=== PATIENT | female | born 1975 ===

== ENCOUNTER 2016-12-30 13:05 | Emergency (ER) | payer MEDICAID, OTHER ==
[2016-12-30 13:06] VITALS: BMI 23.3
[2016-12-30 13:33] VITALS: BP 94/64; PULSE 70; RESP 18; TEMP 98.3; O2SAT 99
--- NOTE | 2016-12-30 14:01 | RAD ---
PROCEDURE: Right Ankle Radiographs. HISTORY: pain COMPARISON: Right ankle radiographs performed 05/04/15 FINDINGS: BONES: No acute displaced fracture. Small heel spur. JOINTS: No dislocation. SOFT TISSUES: Unremarkable. No evidence of radiopaque foreign body. OTHER FINDINGS: None. IMPRESSION: No acute displaced fracture, dislocation, or significant joint effusion identified. If symptoms persist or if there is clinical concern, x-ray follow-up in 7-10 days should be considered.
--- NOTE | 2016-12-30 14:20 | C.PDOC ---
History Of Present Illness 41 year old patient presents to the ED complaining of right foot heel since yesterday. Patient states she has a burning and pulling sensation. Patient notes she took Motrin prior to arrival. Patient denies any new trauma, fever, numbness, weakness, or any more pain medications. Patient has a history of plantar fasciitis, surgical removal of benign tumors, and fractures to the left foot. Time Seen by Provider: 12/30/16 13:38 Chief Complaint (Nursing): Lower Extremity Problem/Injury History Per: Patient History/Exam Limitations: no limitations Onset/Duration Of Symptoms: Days (1) Current Symptoms Are (Timing): Still Present Severity: Mild Pain Scale Rating Of: 3 Recent travel outside of the [place]: No Past Medical History Reviewed: Historical Data, Nursing Documentation, Vital Signs Vital Signs: Last Vital Signs Temp 98.3 F 12/30/16 13:33 Pulse 70 12/30/16 13:33 Resp 18 12/30/16 13:33 BP 94/64 L 12/30/16 13:33 Pulse Ox 99 12/30/16 15:24 - Medical History PMH: Asthma, Fractures, Hypercholesterolemia, Malignancy (sarcoma rt femur), Migraine Surgical History: Appendectomy, - [facility] Procedures APPLICATION OF SPLINT (11/22/13) EXCISION OF ESOPHAGUS, ENDO, DIAGN (07/29/15) EXCISION OF STOMACH, ENDO, DIAGN (07/29/15) IMMOBILIZ/WOUND ATTN NEC (11/07/14) INJECT/INFUSE NEC (09/20/14) PHYSICAL THERAPY NEC (09/09/14) Family History: States: CAD - Social History Hx Tobacco Use: No Hx Alcohol Use: No Hx Substance Use: No - Immunization History Hx Tetanus Toxoid Vaccination: Yes Hx Influenza Vaccination: Yes Hx Pneumococcal Vaccination: No Review Of Systems Except As Marked, All Systems Reviewed And Found Negative. Constitutional: Negative for: Fever Musculoskeletal: Positive for: Foot Pain (right heel) Neurological: Negative for: Weakness, Numbness Physical Exam - Physical Exam Appears: Non-toxic, No Acute Distress Skin: Warm, Dry Head: Atraumatic, Normacephalic Eye(s): bilateral: Normal Inspection, EOMI Oral Mucosa: Moist Neck: Normal ROM, Supple Chest: Symmetrical Respiratory: No Accessory Muscle Use Back: Normal Inspection Extremity: Normal ROM, No Pedal Edema, No Calf Tenderness, Capillary Refill (<2 seconds), No Deformity, No Swelling, Other (healed scar to the medial aspect of the right ankle; tenderness to the right heel; sensation intact; full ROM to the right foot) Pulses: Left Dorsalis Pedis: Normal, Right Dorsalis Pedis: Normal Neurological/Psych: Oriented x3, Normal Speech, Normal Cognition, Normal Motor, Normal Sensation Gait: Steady ED Course And Treatment O2 Sat by Pulse Oximetry: 99 (RA) Pulse Ox Interpretation: Normal - Other Rad right ankle X-Ray: Read By Radiologist (DR. Rouse, Ashleigh Morejon MD) Interpretation: PROCEDURE: Right Ankle Radiographs. HISTORY: pain. COMPARISON: Right ankle radiographs performed 05/04/15. FINDINGS: BONES: No acute displaced fracture. Small heel spur. JOINTS: No dislocation. SOFT TISSUES: Unremarkable. No evidence of radiopaque foreign body. OTHER FINDINGS : None. IMPRESSION: No acute displaced fracture, dislocation, or significant joint effusion identified. If symptoms persist or if there is clinical concern , x-ray follow-up in 7-10 days should be considered. Progress Note: Plan: -Right ankle x-ray. -Reassess and disposition. On reassessment, patient is resting comfortably, and is in no acute distress. Patient was instructed to follow up with drop hammer pile driver operator in 1-2 days for further evaluation. Air cast applied by rehabilitation aide/scheduler. Disposition - Disposition Referrals: [facility] at [facility] [Outside] Darin Ovalle MD [Staff Provider] - Disposition: HOME/ ROUTINE Disposition Time: 14:26 Condition: STABLE Additional Instructions: Follow up with the clinic in 2-5 days for further evaluation. Take medications as prescribed. Return to the emergency department at any time if symptoms persist or worsen. You may call [facility] for any assistance [phone]. Instructions: Foot Sprain (ED) - Clinical Impression Clinical Impression: Foot pain - PA / DIRECTOR REGULATORY AGENCY / Resident Statement MD/DO has reviewed & agrees with the documentation as recorded. - Scribe Statement The provider has reviewed the documentation as recorded by the Scribe Ashlyn Clements All medical record entries made by the Scribe were at my direction and personally dictated by me. I have reviewed the chart and agree that the record accurately reflects my personal performance of the history, physical exam, medical decision making, and the department course for this patient. I have also personally directed, reviewed, and agree with the discharge instructions and disposition.
== END 2016-12-30 14:35 | disposition home or self-care (01) ==
LOC: C.ER 13:05
DX: M79.671 Pain in right foot (principal)

== ENCOUNTER 2018-12-16 09:10 | Outpatient (CLI) | payer BC | END 2018-12-16 09:11 | disposition home or self-care (01) | LOC: C.RADH 09:10 | DX: C49.21 Malignant neoplasm of connective and soft tissue of right lower limb, including hip (principal); M54.2 Cervicalgia ==